=== PATIENT | female | born 1960 | race Caucasian/White ===

== ENCOUNTER 2019-02-02 13:20 | Outpatient (CLI) | payer MEDICARE ==
--- NOTE | 2019-02-02 14:16 | BD ---
DEXA bone density examination HISTORY: 58-year-old postmenopausal female for screening COMPARISON: None FINDINGS: L1--bone mineral density 1.101 g/sq cm; T score 1.0 L2--bone mineral density 0.953 g/sq cm; T score -0.7 L3--bone mineral density 0.935 g/sq cm; T score -1.4 L4--bone mineral density 1.069 g/sq cm; T score 0.1 Total L1-L4--bone mineral density 1.014 g/sq cm; T score -0.3 Left femoral neck--bone mineral density0.66 g/sq cm; T score -1.7 Total proximal left femur--bone mineral density 0.838; T score -0.9 IMPRESSION: 1. Mild osteopenia of the left femoral neck. 2. Normal bone mineralization lumbar spine. 3. The 10 year major osteoporotic fracture risk is 7.3% with 10 year hip fracture risk of 0.6%.
--- NOTE | 2019-02-13 16:35 | MMO ---
Bilateral MAMMO Bilat Screen [facility]. CLINICAL HISTORY: Patient is 58 years old and is seen for screening. VIEWS: The views performed were: bilateral craniocaudal with tomosynthesis and bilateral mediolateral oblique with tomosynthesis. FILMS COMPARED: The present examination has been compared to prior imaging studies performed at [facility] on 08/12/2016 and 08/26/2016. This study has been interpreted with the assistance of computer-aided detection. MAMMOGRAM FINDINGS: There are scattered fibroglandular densities. There are no suspicious masses, suspicious calcifications, or new areas of architectural distortion. IMPRESSION: THERE IS NO MAMMOGRAPHIC EVIDENCE OF MALIGNANCY. A ROUTINE FOLLOW-UP MAMMOGRAM IN 1 YEAR IS RECOMMENDED. THE RESULTS OF THIS EXAM WERE SENT TO THE PATIENT. ACR BI-RADS Category 1 - Negative MAMMOGRAPHY NOTE: 1. A negative mammogram report should not delay a biopsy if a dominant of clinically suspicious mass is present. 2. Approximately 10% to 15% of breast cancers are not detected by mammography. 3. Adenosis and dense breasts may obscure an underlying neoplasm. Reported by: Liane ROSAS Electonically Signed: [id number]
== END 2019-02-02 13:21 | disposition home or self-care (01) ==
LOC: BICMAMMO 13:20
PROVIDERS: ATTEND Family Medicine
DX: Z12.31 Encounter for screening mammogram for malignant neoplasm of breast (principal); Z13.820 Encounter for screening for osteoporosis; Z78.0 Asymptomatic menopausal state; M85.89 Other specified disorders of bone density and structure, multiple sites
CPT/HCPCS: 77063; 77067; 77080

== ENCOUNTER 2019-07-03 08:14 | Outpatient (CLI) | payer MEDICARE ==
--- NOTE | 2019-07-03 08:34 | RAD ---
LEFT FOOT 3 VIEWS: HISTORY: Foot pain. FINDINGS/IMPRESSION: Spur seen from the plantar calcaneus. Degenerative changes at the tarsometatarsal joints and at the 1st MTP joint. No fracture or acute abnormality. POS: [facility]
== END 2019-07-03 08:15 | disposition home or self-care (01) ==
LOC: BICRAD 08:14
PROVIDERS: ATTEND Family Medicine
DX: M79.672 Pain in left foot (principal); M19.072 Primary osteoarthritis, left ankle and foot; M77.32 Calcaneal spur, left foot

== ENCOUNTER 2019-09-21 10:52 | Emergency (ER) | payer MEDICARE ==
--- NOTE | 2019-09-21 11:28 | CT ---
Exam: Head CT without contrast HISTORY: Trauma. Fall. COMPARISON: 04/21/2016 FINDINGS: Hemorrhage: No acute hemorrhage. Sequela of previously noted left occipital lobe hemorrhage is identi fied. There is associated encephalomalacia and gliosis in the left occipital lobe. Associated loss of bettencourt-white matter differentiation. Brain parenchyma: Cortical bettencourt-white matter differentiation is preserved in the remainder the cerebr um. No mass effect or midline shift. Basilar cisterns are patent.Minimal chronic small vessel ischemic changes of the white matter Ventricular system: Ventricles and sulci are patent and symmetric. Calvarium: Intact. Sinuses and mastoid air cells: Adequate aeration. IMPRESSION: 1. No acute intracranial process or intracranial posttraumatic sequelae 2. Expected changes from remote intraparenchymal hematoma in the left cerebrum
--- NOTE | 2019-09-21 11:29 | CT ---
EXAM: CT of the cervical spine without contrast HISTORY: Fall with neck pain COMPARISON: None TECHNIQUE: Multiple contiguous axial images were obtained in a CT of the cervical spine without contr ast. Sagittal and coronal reformats were performed. FINDINGS: The vertebral bodies demonstrate normal height and alignment without fracture or subluxatio n. Mild degenerative changes are present. The intervertebral discs are narrowed in the mid cervical spine. No prevertebral soft tissue swelling is seen. The posterior facets are well aligned. Normal alignment of the skull base with the cervical spine is seen. The lung apices and cervical soft tissues are unremarkable. IMPRESSION: No evidence of acute osseous abnormality of the cervical spine.
--- NOTE | 2019-09-21 11:31 | CT ---
EXAM: CT face without contrast HISTORY: Fall with facial trauma COMPARISON: None TECHNIQUE: Multiple contiguous axial images were obtained and a CT of the face without contrast. Sagi ttal and coronal reformats were performed. FINDINGS: No facial fractures are identified. No facial soft tissue swelling is seen. The globes and retrobulbar soft tissues are unremarkable. The visualized paranasal sinuses are well aerated without evidence of opacification. The mastoid air cells are well aerated. Visualized intracranial structures are unremarkable. IMPRESSION: No evidence of facial fracture
--- NOTE | 2019-09-21 11:39 | RAD ---
Radiograph right wrist 3 views: DATE: 09/21/2019 Time: 12:31 PM HISTORY: 59-year-old female with acute traumatic right wrist pain from fall COMPARISON: None FINDINGS: Mildly comminuted fracture of distal radial metaphysis and epiphysis, with dorsal angulation of major distal fragments. One or 2 mm step-off at radiocarpal articular surface. No displaced ulnar styloid fracture identified on AP view. The ulnar styloid is obscured by overlap with other bones on the other 2 views. IMPRESSION: Acute, traumatic, displaced, mildly comminuted, intra-articular, Colles' fracture of distal radial me taphysis and epiphysis.
[2019-09-21 12:34] LABS: #Basophils 0.1 thou/uL (0.0-0.2); #Eosinphils 0.3 thou/uL (0.0-0.7); #Lymphocytes 1.5 thou/uL (1.20-3.40); #Monocytes 0.8 thou/uL (0.11-0.59); #Neutrophils 6.3 thou/uL (1.40-6.50); %Basophils 0.9 % (0.0-1.0); %Eosinophils 3.5 % (0.0-10.0); %Lymphocytes 16.8 % (21.0-51.0); %Monocytes 8.6 % (0.0-10.0); %Neutrophils 70.2 % (42.0-75.0); Hemoglobin 13.6 g/dL (12.0-16.0); Mean Corpuscular HGB CONC 31.1 g/dL (32.0-36.0); Mean Corpuscular Hemoglobin 28.6 pg (27.0-31.0); Mean Corpuscular Volume 91.9 fL (78.0-98.0); Mean Platelet Volume 7.8 fL (7.4-10.4); Platelet Count 264 thou/uL (130-400); RBC Distribution Width 14.8 % (11.5-14.5); Red Blood Cell (RBC) Count 4.77 mill/uL (4.20-5.40); White Blood Cell (WBC) Count 8.9 thou/uL (4.8-10.8)
[2019-09-21 12:41] LABS: PTT 29.9 sec (22.9-36.1); Prothrombin Time 12.8 sec (12.0-14.7)
[2019-09-21 13:02] LABS: ALT (SGPT) 27 U/L (8-55); AST (SGOT) 35 U/L (5-34); Albumin 4.1 g/dL (3.5-5.0); Alkaline Phosphatase 80 U/L (40-110); Anion Gap 15 mmol/L (10-20); BUN (Urea Nitrogen) 22 mg/dL (9.8-20.1); Bilirubin, Total 0.4 mg/dL (0.2-1.2); Calc. Creatinine Clearance 0 mL/min (70-130); Carbon Dioxide 21 mmol/L (22-29); Chloride 111 mmol/L (98-107); Estimated GFR-MDRD 38; Globulin 2.8 g/dL (2.4-3.5); Glucose 93 mg/dL (70-105); Potassium 4.1 mmol/L (3.5-5.1); Protein, Total 6.9 g/dL (6.0-8.3); Sodium 143 mmol/L (136-145)
[2019-09-21] MEDS ORDERED: Midazolam HCl 2 mg/2 ml Vial ONE (14:06)
[2019-09-21] MEDS ORDERED: Fentanyl 100 MCG/2 ML VIAL ONE (14:06)
--- NOTE | 2019-09-21 14:51 | RAD ---
XR Wrist Rt 2 View HISTORY: Postreduction distal right radial fracture COMPARISON: Earlier exam of 12:29 PM from same date FINDINGS: Interval reduction of the mildly comminuted displaced and angulated distal radial fracture is seen wi th mild residual displacement. Cast has been placed in the interim.
== END 2019-09-21 16:45 | disposition home or self-care (01) ==
LOC: ERS 10:52
DX: S52.531A Colles' fracture of right radius, initial encounter for closed fracture (principal); S52.571A Other intraarticular fracture of lower end of right radius, initial encounter for closed fracture; S59.201A Unspecified physeal fracture of lower end of radius, right arm, initial encounter for closed fracture; I11.0 Hypertensive heart disease with heart failure; I50.9 Heart failure, unspecified; M54.2 Cervicalgia; F17.210 Nicotine dependence, cigarettes, uncomplicated; Z79.82 Long term (current) use of aspirin; Z79.899 Other long term (current) drug therapy; W10.9XXA Fall (on) (from) unspecified stairs and steps, initial encounter
CPT/HCPCS: 25605; 70450; 70486; 72125; 80053; 85025; 85610; 85730; 96374; 99152; 99153; J2250; J3010

== ENCOUNTER 2020-01-31 08:27 | Outpatient (CLI) | payer MEDICARE, OTHER ==
--- NOTE | 2020-01-31 11:17 | BD ---
BONE DENSITOMETRY: Date: 01/31/2020 INDICATION: Postmenopausal screening. Vitamin D deficiency. FINDINGS: Lumbar Spine: BMD (g/cm2) L1 0.924 T-Score: -0.6 L2 0.954 T-Score: -0.7 L3 0.899 T-Score: -1.7 L4 0.938 T-Score: -1.1 Total 0.929 T-Score: -1.1 Total Density 02/02/2019: 1.014 Left Femoral Neck: 0.625 T-Score: -2.0 Total Femur: 0.819 T-Score: -1.0 Total Density 02/02/2019: 0.838 IMPRESSION: Bone mineral density of the lumbar spine and femoral neck both indicate osteopenia. 10 YEAR FRACTURE RISK: Major osteoporotic fracture: 14% Hip fracture: 1.8% POS: [facility]
== END 2020-01-31 08:28 | disposition home or self-care (01) ==
LOC: BICMAMMO 08:27
PROVIDERS: ATTEND Family Medicine
DX: Z13.820 Encounter for screening for osteoporosis (principal); E55.9 Vitamin D deficiency, unspecified; M85.89 Other specified disorders of bone density and structure, multiple sites
CPT/HCPCS: 77080

== ENCOUNTER 2021-03-12 08:25 | Outpatient (CLI) | payer MEDICARE | END 2021-03-12 08:26 | disposition home or self-care (01) | LOC: BICRAD 08:25 | PROVIDERS: ATTEND Family Medicine | DX: M54.50 Low back pain, unspecified (principal); M47.816 Spondylosis without myelopathy or radiculopathy, lumbar region | CPT/HCPCS: 72100 ==

== ENCOUNTER 2021-04-02 08:03 | Outpatient (CLI) | payer MEDICARE | END 2021-04-02 08:04 | disposition home or self-care (01) | LOC: BICMAMMO 08:03 | PROVIDERS: ATTEND Family Medicine | DX: Z12.31 Encounter for screening mammogram for malignant neoplasm of breast (principal); Z91.89 Other specified personal risk factors, not elsewhere classified | CPT/HCPCS: 77063; 77067 ==

== ENCOUNTER 2021-07-06 05:56 | Emergency (ER) | payer MEDICARE ==
[2021-07-06] MEDS ORDERED: Boostrix 0.5 ML (Tdap) VIAL ONE ×2 (06:29→06:34)
== END 2021-07-06 06:47 | disposition home or self-care (01) ==
LOC: ERS 05:56
DX: S51.812A Laceration without foreign body of left forearm, initial encounter (principal); I11.0 Hypertensive heart disease with heart failure; I50.9 Heart failure, unspecified; I25.2 Old myocardial infarction; E78.5 Hyperlipidemia, unspecified; I48.91 Unspecified atrial fibrillation; F17.210 Nicotine dependence, cigarettes, uncomplicated; Z23 Encounter for immunization; X50.0XXA Overexertion from strenuous movement or load, initial encounter
CPT/HCPCS: 90471; 90715; 99283

== ENCOUNTER 2021-07-17 13:42 | Outpatient (CLI) | payer MEDICARE | END 2021-07-17 13:43 | disposition home or self-care (01) | LOC: BICULT 13:42 | PROVIDERS: ATTEND Family Medicine | DX: R22.32 Localized swelling, mass and lump, left upper limb (principal) ==

== ENCOUNTER 2021-08-18 14:40 | Outpatient (CLI) | payer MEDICARE ==
[2021-08-18 16:01] LABS: Hemoglobin 15.1 g/dL (12.0-15.5); Mean Corpuscular HGB CONC 31.5 g/dL (32.0-36.0); Mean Corpuscular Hemoglobin 29.2 pg (27.0-33.0); Mean Corpuscular Volume 92.7 fl (81.6-98.3); Mean Platelet Volume 10.5 fl (7.4-10.4); Platelet Count 279 10x3/uL (150-450); RBC Distribution Width 14.8 % (11.5-14.5); Red Blood Cell (RBC) Count 5.18 10x6/uL (3.90-5.03); White Blood Cell (WBC) Count 8.8 10x3/uL (3.5-10.5)
[2021-08-18 16:17] LABS: PTT 31.9 sec (22.0-33.0)
[2021-08-18 16:31] LABS: Anion Gap 20 mmol/L (10-20); BUN (Urea Nitrogen) 32 mg/dL (9.8-20.1); Calc. Creatinine Clearance 0 mL/min (70-130); Calcium 9.4 mg/dL (7.8-10.44); Carbon Dioxide 22 mmol/L (22-29); Chloride 107 mmol/L (98-107); Glucose 79 mg/dL (70-105); Potassium 4.5 mmol/L (3.5-5.1); Sodium 144 mmol/L (136-145)
[2021-08-19 00:02] LABS: SARS-CoV-2 PCR by NAA Not Detected (NotDetected)
== END 2021-08-18 14:41 | disposition home or self-care (01) ==
LOC: LABBT 14:40
PROVIDERS: ATTEND Internal Medicine Cardiovascular Disease
DX: Z01.812 Encounter for preprocedural laboratory examination (principal); I48.19 Other persistent atrial fibrillation; Z20.822 Contact with and (suspected) exposure to COVID-19
CPT/HCPCS: 80048; 85027; 85610; 85730; U0003; U0005

== ENCOUNTER 2021-08-20 08:47 | Day surgery (SDC) | payer MEDICARE ==
[2021-08-18 09:33] VITALS: BMI 28.3
[2021-08-20] MEDS ORDERED: Isoproterenol 0.2 MG/1 ML AMP ONE (09:18)
[2021-08-20] MEDS ORDERED: Heparin 10,000 UNITS/ 10 ML VIAL ONE (09:18)
[2021-08-20] MEDS ORDERED: Heparin 25,000 units/D5W 500 ML ONE (09:18)
[2021-08-20] MEDS ORDERED: Protamine Sulfate 50 MG/5 ML VIAL ONE (09:18)
[2021-08-20] MEDS ORDERED: Famotidine/PF 20 mg/2ml Vial ONE (11:02)
[2021-08-20] MEDS ORDERED: SUGAMMADEX SODIUM 200 MG/2 ML VIAL ONE (11:02)
[2021-08-20] MEDS ORDERED: fentaNYL Citrate/PF 100 MCG/2 ML SYRINGE ONE (11:02)
== END 2021-08-20 18:18 | disposition home or self-care (01) ==
LOC: SDC 08:47
PROVIDERS: ATTEND Internal Medicine Cardiovascular Disease
PROC: B244ZZ3 Ultrasonography of Right Heart, Intravascular (ICD-10-PCS; principal; 2021-08-20)
PROC: 02583ZZ Destruction of Conduction Mechanism, Percutaneous Approach (ICD-10-PCS; 2021-08-20)
PROC: 02K83ZZ Map Conduction Mechanism, Percutaneous Approach (ICD-10-PCS; 2021-08-20)
PROC: 4A023FZ Measurement of Cardiac Rhythm, Percutaneous Approach (ICD-10-PCS; 2021-08-20)
PROC: 4A0234Z Measurement of Cardiac Electrical Activity, Percutaneous Approach (ICD-10-PCS; 2021-08-20)
DX: I48.19 Other persistent atrial fibrillation (principal); I11.0 Hypertensive heart disease with heart failure; I50.22 Chronic systolic (congestive) heart failure; I42.8 Other cardiomyopathies; I48.92 Unspecified atrial flutter; J44.9 Chronic obstructive pulmonary disease, unspecified; E78.5 Hyperlipidemia, unspecified; Z87.891 Personal history of nicotine dependence; Z79.01 Long term (current) use of anticoagulants; Z79.82 Long term (current) use of aspirin; Z79.83 Long term (current) use of bisphosphonates; Z79.899 Other long term (current) drug therapy; Z88.0 Allergy status to penicillin
CPT/HCPCS: 85347 ×2; 93005; 93613; 93622; 93623; 93656; 93657; 93662; C1730; C1732; C1759; C1760; J1644; J2720; S0028

== ENCOUNTER 2022-04-17 08:36 | Outpatient (CLI) | payer MEDICARE | END 2022-04-17 08:37 | disposition home or self-care (01) | LOC: BICMAMMO 08:36 | PROVIDERS: ATTEND Family Medicine | DX: Z12.31 Encounter for screening mammogram for malignant neoplasm of breast (principal); Z13.820 Encounter for screening for osteoporosis; N95.9 Unspecified menopausal and perimenopausal disorder; M85.852 Other specified disorders of bone density and structure, left thigh; M85.851 Other specified disorders of bone density and structure, right thigh; Z91.89 Other specified personal risk factors, not elsewhere classified | CPT/HCPCS: 77063; 77067; 77080 ==

== ENCOUNTER 2023-04-19 08:47 | Outpatient (CLI) | payer MEDICARE | END 2023-04-19 08:48 | disposition home or self-care (01) | LOC: BICMAMMO 08:47 | PROVIDERS: ATTEND Family Medicine | DX: Z12.31 Encounter for screening mammogram for malignant neoplasm of breast (principal); Z91.89 Other specified personal risk factors, not elsewhere classified | CPT/HCPCS: 77063; 77067 ==

== ENCOUNTER 2024-04-19 07:46 | Outpatient (CLI) | payer MEDICARE | END 2024-04-19 07:47 | disposition home or self-care (01) | LOC: BICMAMMO 07:46 | PROVIDERS: ATTEND Family Medicine | DX: Z12.31 Encounter for screening mammogram for malignant neoplasm of breast (principal); Z12.2 Encounter for screening for malignant neoplasm of respiratory organs; Z78.0 Asymptomatic menopausal state; F17.218 Nicotine dependence, cigarettes, with other nicotine-induced disorders; J44.9 Chronic obstructive pulmonary disease, unspecified; M85.851 Other specified disorders of bone density and structure, right thigh; Z91.89 Other specified personal risk factors, not elsewhere classified | CPT/HCPCS: 71271; 77063; 77067; 77080 ==